=== PATIENT | female | born 1980 | race Caucasian/White ===

== ENCOUNTER → 2019-08-13 13:00 | Outpatient (CLI) | payer BC, SELFPAY ==
--- NOTE | 2019-08-13 13:01 | US_ITS ---
PROCEDURE: US TRANSVAGINAL CLINICAL INDICATION: PELVIC PAIN Heavy painful cycles COMPARISON: PTV US PELVIS-TRANSVAGINAL ONLY from 11/03/2013 FINDINGS: Uterus is 8 x 4 x 5 cm with a combined endometrial thickness of 8 mm. No uterine mass evident. There is homogeneous echogenicity of the uterus. Small amount fluid is present anterior to the uterus. Left ovary is 18 x 15 mm. Right ovary is 19 x 13 mm and contains a 13 mm cyst IMPRESSION: Small amount of fluid anterior to the uterus otherwise negative pelvic ultrasound Dictated by: Neftali Wilks MD 08/13/2019 18:03 Electronically signed by Neftali Wilks MD in [place] 08/13/2019 18:03
== END ==
PROVIDERS: PCP Family Medicine; Visit Provider Obstetrics & Gynecology
DX: N92.0 Excessive and frequent menstruation with regular cycle (principal); R10.2 Pelvic and perineal pain
CPT/HCPCS: 76830

== ENCOUNTER → 2019-08-31 17:04 | Outpatient (CLI) | payer BC, SELFPAY ==
--- NOTE | 2019-08-31 17:16 | MM_ITS ---
PROCEDURE: MM DIG SCREENING MAMM BI W/CAD CLINICAL INDICATION: screening There is a history of breast cancer patient's mother and maternal aunt. COMPARISON: None, this is baseline TECHNIQUE: Standard CC and MLO images were obtained. R2 CAD reviewed. FINDINGS: Moderate diffuse fibroglandular densities are seen in both breast most prominent in the upper outer quadrants. The findings are fairly symmetrical bilaterally. There is no suspicious lesion and no suspicious microcalcifications. IMPRESSION: Moderate breast density with no suspicious lesions seen BI-RAD Category: 1 Negative FOLLOW-UP: 1YR 1 Year Follow-up (A letter has been sent to the patient regarding results of the study.) Dictated by: Dr. Humberto Mireles MD 09/02/2019 17:[address] Humberto Mireles MD in [place] 09/02/2019 17:39
== END ==
PROVIDERS: PCP Family Medicine; Visit Provider Obstetrics & Gynecology
DX: Z12.31 Encounter for screening mammogram for malignant neoplasm of breast (principal)
CPT/HCPCS: 77067